=== PATIENT | female | born 1970 | race American Indian/Alaskan Native ===

== ENCOUNTER 2016-11-07 14:15 | Emergency (ER) | payer MEDICARE, OTHER ==
--- NOTE | 2016-11-07 15:34 | XRay Report ---
ROUTINE CHEST, TWO VIEWS: HISTORY: Shortness of breath. The trachea, heart, mediastinal contour, lung hernandez and bony thorax are unremarkable. IMPRESSION: Unremarkable chest x-ray.
[2016-11-07 15:48] LABS: Basophils % (Auto) 1.1 % (0.0-1.8); Eosinophils % (Auto) 4.5 % (0.0-4.3); Hematocrit 40.5 % (30.3-42.9); Hemoglobin 13.3 gm/dl (10.1-14.3); Mean Corpuscular HGB Conc 33 % (30-34); Mean Corpuscular Hemoglobin 28 pg (28-32); Mean Corpuscular Volume 86 fl (79-97); Platelet Count 221 K/mm3 (140-440); Red Blood Count 4.73 M/mm3 (3.65-5.03); Red Cell Distribution Width 13.8 % (13.2-15.2); White Blood Count 7.4 K/mm3 (4.5-11.0)
[2016-11-07 15:54] LABS: Blood Urea Nitrogen 9 mg/dL (7-17); Calcium 9.3 mg/dL (8.4-10.2); Carbon Dioxide 22 mmol/L (22-30); Chloride 98.9 mmol/L (98-107); Glucose 91 mg/dL (65-100); Sodium 132 mmol/L (137-145)
[2016-11-07 16:07] LABS: Anion Gap 16 mmol/L; Potassium 4.4 mmol/L (3.6-5.0)
--- NOTE | 2016-11-07 22:16 | Emergency Department Report ---
ED Shortness of Breath HPI - General Chief Complaint: Dyspnea/Respdistress Stated Complaint: LEG SWOLLEN Time Seen by Provider: 11/07/16 16:15 Source: patient Mode of arrival: Ambulatory Limitations: No Limitations - History of Present Illness Initial Comments: This is a pleasant 46-year-old female complaining of some mild dyspnea throughout the last several days. She states that she has been out of her Synthroid medication for the past week. She thinks this is the reason for her dyspnea. She does give a history of occasional pedal edema. She does have a when necessary prescription for Lasix that she has used in the past. Patient was able to get a five-day prescription for her Synthroid from the pharmacist. She did take one earlier today. She states while she's been in triage the last 7 hours that her symptoms seemed to have improved. She is requesting a refill medication for Synthroid as well as ibuprofen and Lasix. She denies any chest pain. She denies any history of congestive heart failure. She denies difficulties with urination or urgency. - Related Data Previous Rx's Medication Instructions Recorded Last Taken Type Furosemide [Lasix] 20 mg PO QDAY PRN #30 tablet 11/07/16 Unknown Rx Ibuprofen [Motrin 600 MG tab] 600 mg PO Q8H PRN #60 tablet 11/07/16 Unknown Rx Levothyroxine [Synthroid] 200 mcg PO QAM #90 tablet 11/07/16 Unknown Rx Allergies Allergy/AdvReac Type Severity Reaction Status Date / Time No Known Allergies Allergy Unverified 11/07/16 14:37 ED Review of Systems ROS: Stated complaint: LEG SWOLLEN Other details as noted in HPI Comment: All other systems reviewed and negative Constitutional: denies: chills, fever Eyes: denies: eye pain, eye discharge, vision change ENT: denies: ear pain, throat pain Respiratory: shortness of breath. denies: cough, wheezing Cardiovascular: denies: chest pain, palpitations Endocrine: no symptoms reported Gastrointestinal: denies: abdominal pain, nausea, diarrhea Genitourinary: denies: urgency, dysuria, discharge Musculoskeletal: denies: back pain, joint swelling, arthralgia Skin: denies: rash, lesions Neurological: denies: headache, weakness, paresthesias Psychiatric: denies: anxiety, depression Hematological/Lymphatic: denies: easy bleeding, easy bruising ED Past Medical Hx - Surgical History Past Surgical History?: Yes Additional Surgical History: '95 - Social History Smoking Status: Never Smoker Substance Use Type: None - Medications Home Medications: Home Medications Medication Instructions Recorded Confirmed Last Taken Type Furosemide [Lasix] 20 mg PO QDAY PRN #30 tablet 11/07/16 Unknown Rx Ibuprofen [Motrin 600 MG tab] 600 mg PO Q8H PRN #60 tablet 11/07/16 Unknown Rx Levothyroxine [Synthroid] 200 mcg PO QAM #90 tablet 11/07/16 Unknown Rx ED Physical Exam - General Limitations: No Limitations General appearance: alert, in no apparent distress, obese - Head Head exam: Present: atraumatic, normocephalic - Eye Eye exam: Present: normal appearance, EOMI. Absent: scleral icterus - ENT ENT exam: Present: normal exam, normal orophraynx, mucous membranes moist - Neck Neck exam: Present: normal inspection, other (no JVD). Absent: meningismus, lymphadenopathy - Respiratory Respiratory exam: Present: normal lung sounds bilaterally. Absent: respiratory distress, wheezes, rales - Cardiovascular Cardiovascular Exam: Present: regular rate, normal rhythm. Absent: systolic murmur, diastolic murmur, rubs, gallop - GI/Abdominal GI/Abdominal exam: Present: soft, normal bowel sounds. Absent: tenderness, guarding - Extremities Exam Extremities exam: Present: normal inspection. Absent: tenderness, pedal edema, joint swelling, calf tenderness - Back Exam Back exam: Present: normal inspection, tenderness (mild diffusely across the lower lumbar paralumbar region.). Absent: CVA tenderness (R), CVA tenderness (L ), muscle spasm - Neurological Exam Neurological exam: Present: alert, oriented X3 - Psychiatric Psychiatric exam: Present: normal affect, normal mood - Skin Skin exam: Present: warm, dry, intact, normal color. Absent: rash ED Course Vital Signs 11/07/16 14:30 Temperature 98.4 F Pulse Rate 88 Respiratory 24 Rate Blood Pressure 137/83 O2 Sat by Pulse 98 Oximetry - Reevaluation(s) Reevaluation #1: 11/07/16 21:59 ECG at 1439 with normal sinus rhythm at 86 bpm with a normal IN and QRS. Nonspecific T wave abnormalities are noted. It does have a prolonged QT at 560 ms. Otherwise no STEMI noted. No old for comparison. Reevaluation #2: 11/07/16 22:28 Patient is well-appearing here. ECG is unremarkable. Chest x-ray demonstrates no cardiomegaly or vascular congestion. I do not appreciate any edema on examination either. Kidney function is excellent. Rest of electrolytes are unremarkable as well. Patient indicates her baseline blood pressure is usually 120s over 70s. Not inclined to start her on hydrochlorothiazide at this time. I will give a when necessary Lasix prescription to her. Per her request I have written for the ibuprofen and the Synthroid as well. She has plans to follow- up with private physician. I did get a couple referrals to her for this as well. She will be with her tonight stable vital signs are noted. ED Medical Decision Making - Lab Data Result diagrams: 11/07/16 15:26 11/07/16 15:26 - Radiology Data Radiology results: report reviewed, image reviewed NEgative cxr Critical care attestation.: If time is entered above; I have spent that time in minutes in the direct care of this critically ill patient, excluding procedure time. ED Disposition Clinical Impression: Pedal edema Back pain Qualifiers: Back pain location: low back pain Chronicity: chronic Back pain laterality: bilateral Sciatica presence: without sciatica Qualified Code(s): M54.5 - Low back pain Dyspnea Qualifiers: Dyspnea type: dyspnea on exertion Qualified Code(s): R06.09 - Other forms of dyspnea Disposition: DISCHARGED TO HOME OR SELFCARE Is pt being admited?: No Does the pt Need Aspirin: No Condition: Stable Instructions: Leg Edema (ED) Additional Instructions: Take ibuprofen as needed for your back. Continue to do strengthening exercises for your back. Avoid strenuous activities. Use Lasix as needed for leg swelling. If you're using this regularly you need to be followed by a doctor and have other medications prescribed as well. Return if any worsening. Prescriptions: Furosemide [Lasix] 20 mg PO QDAY PRN #30 tablet PRN Reason: Edema Ibuprofen [Motrin 600 MG tab] 600 mg PO Q8H PRN #60 tablet PRN Reason: Pain Levothyroxine [Synthroid] 200 mcg PO QAM #90 tablet Referrals: [facility] [Provider Group] - 3-5 Days NANCY OVALLE MD [Staff Physician] - 3-5 Days Time of Disposition: 22:20
[2016-11-07 22:48] VITALS: BP 140/79
== END 2016-11-07 22:30 | disposition home or self-care (01) ==
LOC: ED 14:15
DX: R60.0 Localized edema (principal); M54.5 Low back pain; R06.09 Other forms of dyspnea
CPT/HCPCS: 36415; 71020; 80048; 84484; 85025; 93005; 93010; 99284